=== PATIENT | male | born 1930 | race Caucasian/White ===

== ENCOUNTER 2016-06-09 18:38 | Inpatient (IN) | payer MEDICARE, OTHER ==
[~2016-06-09] VITALS: Ht 179.1 cm; Wt 80.6 kg
[~2016-06-09 18:38] MED LIST: ASPI-13 PO; WARF5TAB7 PO
[2016-06-09 18:45] VITALS: BP 125/67; PULSE 79; RESP 18; O2SAT 97
[2016-06-09] MEDS ORDERED: 0.9% Sodium Chloride 1,000 ML IV ONE ×2 (18:53→21:15)
[2016-06-09] MEDS ORDERED: Ondansetron 2 mg/mL 2 mL Inj IVPUSH PRN (18:55)
--- NOTE | 2016-06-09 19:02 | ED.REPORT ---
HPI-Abd Pain M 40 and Over Date of Service Jun 09, 2016 ED Provider: Ta Steward DO An 86 year old male with a history of atrial fibrillation, appendectomy, hiatal hernia and multiple other medical concerns presents to the ED due to abdominal pain. The pt ate sunflower seeds and ice cream last night and soon after experienced nausea, vomiting and diarrhea. He has experienced persistent right- sided abdominal pain today, though he denies hematochezia. The pt takes aspirin but has not been on Warfarin in some time. Nursing Notes Stated Complaint: ABDOMINAL PAIN Chief Complaint: Male Abdominal Pain Nursing Notes Reviewed: Yes Allergies: Coded Allergies: No Known Allergies (Verified , 12/03/08) Scheduled Aspirin/Calcium Carbonate/Mag (Aspirin Buffered) 325 Mg Tablet 325 MG PO BID to be started the day after last Lovenox injection Warfarin Sodium (Warfarin Sodium) 5 Mg Tablet 5 MG PO MTWSat/Sun Warfarin Sodium (Warfarin Sodium) 5 Mg Tablet 2.5 MG PO Thur/Fri General Time Seen by MD: 18:50 Chief Complaint Abdominal pain Hx Obtained From: Patient Arrived By: Walk-in Sudden in Onset?: Yes Onset Occurred: 1 day ago Symptom Duration: Since onset Recent Healthcare: No recent doctor visit, No recent hospitalization Similar Sx Previous: No Past Medical History Past Medical History atrial fibrillation cardiomyopathy cardioversion lower extremity edema hiatal hernia hammertoe Past Surgical History right hip and bilateral knee replacement Reports: Appendectomy, Tonsillectomy Smoking History Former Smoker (quit 40 years ago) Social History Other Social History: Good social support, Ambulatory Status Independent Review of Systems Constitutional: Denies: Fever Respiratory: Denies: Non-productive cough Cardiovascular: Denies: Chest pain GI: Reports: Abdominal pain, Diarrhea, Nausea, Vomiting, Denies: Hematochezia Musculoskeletal: Denies: Back pain Complete sys rev & neg: except as marked. Physical Exam Initial Vital Signs Vital Signs (First) Date Time Temp Pulse Resp B/P Pulse Ox O2 Delivery O2 Flow Rate FiO2 06/09/16 18:45 36.9 79 18 125/67 97 Room Air Initial VS: Reviewed General/Constitutional: Awake, Alert Respiratory / Chest: Atraumatic, Breath sounds NL, Breath sounds = bilat, No respiratory distress Cardiovascular: Heart rate NL, Regular rhythm, Heart sounds NL Abdomen: Atraumatic, Soft moderate RLQ tenderness Back: Atraumatic, Full range of motion Head / Eyes: Atraumatic, Normocephalic, PERRL, EOMI ENT: Atraumatic, Airway patent, Mucous membranes moist Skin: Atraumatic, Color NL, No rash, Warm, Dry Neurologic: Oriented X3, Speech NL, No sensory deficits right-sided facial droop from prior right-sided fascial nerve resection Neck: Atraumatic, Supple, Full range of motion Upper Extremity / MS: Atraumatic, Full range of motion Lower Extremity / Pelvis / MS: Atraumatic, Full range of motion trace lower extremity edema bilaterally Psychiatric: Affect NL, Mood NL Interpretation & Diagnostics Lab Results Interpretation Result Diagram: 06/09/16 1855 06/09/16 1855 Test 06/09/16 18:55 06/09/16 19:05 White Blood Count 14.8th/mm3 (3.8-10.1) Red Blood Count 4.66mil/mm3 (4.40-5.80) Hemoglobin 15.1g/dL (13.8-17.2) Hematocrit 42.6% (41.0-50.0) Mean Corpuscular Volume 91.4fL (81-100) Mean Corpuscular Hemoglobin 32.4pg (27.0-35.0) Mean Corpuscular Hemoglobin Concent 35.4% (32.0-37.0) Red Cell Distribution Width 11.9% (12.3-15.4) Platelet Count 159bil/L (150-400) Neutrophils (%) (Auto) 83.8% (40-74) Lymphocytes (%) (Auto) 7.9% (14-46) Monocytes (%) (Auto) 7.9% (4-12) Eosinophils (%) (Auto) 0% (0-5) Basophils (%) (Auto) 0.1% (0-3) Prothrombin Time 10.7sec (8.1-12.5) Prothromb Time International Ratio 1.00ratio Sodium Level 136mEq/L (134-144) Potassium Level 4.1mEq/L (3.5-5.2) Chloride Level 98mEq/L (97-108) Carbon Dioxide Level 20mmol/L (18-29) Blood Urea Nitrogen 10mg/dL (8-27) Creatinine 0.61mg/dL (0.76-1.27) Estimat Glomerular Filtration Rate 133mL/min (>59) Glucose Level 134mg/dL (60-99) Lactic Acid Level 2.1mmol/L (0.4-2.0) Calcium Level 9.2mg/dL (8.5-10.1) Magnesium Level 1.9mg/dL (1.6-2.6) Total Bilirubin 1.0mg/dL (0.0-1.2) Aspartate Amino Transf (AST/SGOT) 30U/L (0-50) Alanine Aminotransferase (ALT/SGPT) 20U/L (0-44) Alkaline Phosphatase 50U/L (25-160) Troponin T < 0.010ug/L (0.0-0.011) Total Protein 7.8g/dL (6.4-8.4) Albumin 4.4g/dL (3.4-5.0) Urine Color Yellow (YELLOW) Urine Appearance Hazy (CLEAR,HAZY) Urine pH 5.5 (5.0-8.0) Urine Specific [place] 1.025 (1.003-1.035) Urine Protein 30mg/dL (NEG,TRACE) Urine Glucose (UA) Negativemg/dL (NEGATIVE) Urine Ketones 15mg/dL (NEGATIVE) Urine Occult Blood Small (NEGATIVE) Urine Nitrite Negative (NEGATIVE) Urine Bilirubin Negative (NEGATIVE) Urine Urobilinogen Normalmg/dL (NORMAL) Urine Leukocyte Esterase Negative (NEGATIVE) Urine RBC 0-2/hpf (0-2) Urine WBC 0-5/hpf (0-5) Urine Epithelial Cells Few/hpf (NONE-MOD) Urine Crystals None seen (NONE SEEN) Urine Bacteria None/hpf (NONE-FEW) Urine Hyaline Casts None/lpf (NONE) Urine Granular Casts None seen (NONE SEEN) Urine Waxy Casts None seen (NONE SEEN) Urine Red Blood Cell Casts None seen (NONE SEEN) Urine White Blood Cell Casts None seen (NONE SEEN) Urine Mucus Present (None Seen) Urine Trichomonas None seen (NONE SEEN) Urine Yeast None (NONE SEEN) Urinalysis Comment None Urine Culture Reflexed Not indicated Pulse Oximetry Interpretation Pulse Oximetry Interpretation: 97% on room air Pulse Oximetry: Pulse Ox normal ECG Interpretation ECG Interpretation: normal sinus rhythm with a rate of 73 prolonged NC interval probable left atrial enlargement inferior infarct, old anterior infarct, old Time: 19:08 Interpreted by: ED physician CT Abd / Pelvis Interpretation IMPRESSION: 1. Ill-defined thickened gallbladder wall with suspected superimposed pericholecystic fluid. There are ill-defined areas of faint intraluminal hyperdensity, suggestive of stone. Findings are highly suspicious for cholelithiasis or with superimposed cholecystitis. However, secondary to areas of indistinct characterization, ultrasound is recommended for additional evaluation. 2. Diverticulosis. Dictated by: Lily Tate M.D. on 06/09/2016 at 20:27 Approved by: Lily Tate M.D. on 06/09/2016 at 20:31 Interpretation / Wet Read by: Interpret - Radiologist Re-Eval/Medical Decision Source of Hx: Old records Time of Eval: 21:03 Patient Status: Condition improved Re-Evaluation/Progress Note: Pt rechecked, who is resting. He is informed of his CT results and the plan for admission pending surgical consult are discussed. The pt understands and agrees with the plan. All questions are addressed at this time. Consultation #1: Referral / Consult Name: Sadiq Jarrett MD Consulted With: Surgeon Call Returned at: 21:12 Aids Social Worker: Will see patient, Agrees with eval, Agrees with plan Note: Spoke with Dr. Jarrett, surgeon, regarding pt's case. Dr. Jarrett agrees with the evaluation and agrees to see the pt in the ED. Consultation #2: Referral / Consult Name: Shantel Washburn DO Consulted With: Hospitalist Call Returned at: 22:00 Aids Social Worker: Agrees with eval, Agrees with plan, Accepts admit Note: Spoke with Dr. Washburn, hospitalist, regarding pt's case. Dr. Washburn agrees with the evaluation and agrees to admit the pt. Counseled Regarding: Diagnosis, Lab results, Need for admission Discharge & Departure Primary Impression: Cholecystitis Disposition: ADMITTED TO HOSPITAL Vital Signs - All Vital Signs Date Time Temp Pulse Resp B/P Pulse Ox O2 Delivery O2 Flow Rate FiO2 06/09/16 20:50 37.3 65 17 125/45 98 Room Air 06/09/16 18:45 36.9 79 18 125/67 97 Room Air )( All Prior VS Reviewed: Yes Condition: Stable Referrals: Isrrael Day MD (PCP) Scribe Attestation Portions of this note were transcribed by Shasta Kasper. I, Dr. Steward personally performed the history, physical exam and medical decision-making; I reviewed and confirmed the accuracy of the information in the transcribed note. Signed by: Suyapa Burt, 06/09/16 and 2241. copies to: Isrrael Day MD, Todd P DO Jun 09, 2016 19:02 SHASTA KASPER Jun 09, 2016 19:14 Ta Steward DO Jun 09, 2016 19:02 SHASTA KASPER Jun 09, 2016 19:14
[2016-06-09] MEDS ORDERED: fentaNYL-PF 50 mCg/mL 2 mL Inj IVPUSH PRN (19:05)
[2016-06-09 19:10] LABS: BASOPHILS % (AUTO) 0.1 % (0-3); EOSINOPHILS % (AUTO) 0 % (0-5); MONOCYTES % (AUTO) 7.9 % (4-12); Mean Corpuscular Hemoglobin 32.4 pg (27.0-35.0); Mean Corpuscular Volume 91.4 fL (81-100); NEUTROPHILS % (AUTO) 83.8 % (40-74); Platelet Count 159 bil/L (150-400)
[2016-06-09 19:38] LABS: APPEARANCE,URINE HAZY (CLEAR,HAZY); COLOR,URINE YELLOW (YELLOW); OCCULT BLOOD,URINE SMALL (NEGATIVE); PH,URINE 5.5 (5.0-8.0); UROBILINOGEN,URINE NORMAL (NORMAL)
[2016-06-09 19:40] LABS: TROPONIN T < 0.010 ug/L (0.0-0.011)
[2016-06-09 19:48] LABS: Lipase 22 U/L (13-60); Magnesium 1.9 mg/dL (1.6-2.6)
--- NOTE | 2016-06-09 20:33 | DRSVH ---
PROCEDURE: CT ABDOMEN AND PELVIS WITH CONTRAST ([id number]) INDICATIONS: right lower quadrant pain TECHNIQUE: After the administration of intravenous contrast, 5 mm thick sections acquired from the diaphragm to the symphysis. 5 mm coronal and sagittal reformats were acquired. For radiation dose reduction, the following was used: automated exposure control, adjustment of mA and/or kV according to patient siz e. COMPARISON: None. FINDINGS: Image quality: Excellent. ABDOMEN: Lung bases: Lung bases are clear. Heart size is normal. Solid organs: Liver and spleen are normal in size and enhancement. Gallbladder demonstrates ill-def ined, thickened wall as well as what appears to be presence of pericholecystic fluid. The lumen is il l-defined. However, there is suggestion of areas of relative fever and increased density... Biliary system is non dilated. Pancreas enhances normally. No adrenal nodules. Kidneys demonstrate normal size and enhancement, without hydronephrosis. Peritoneum and bowel: Bowel loops demonstrate normal wall thickness and caliber. No free fluid or a ir. Colonic diverticula are present. Nodes and vessels: No retroperitoneal or mesenteric adenopathy by size criteria. Aorta and inferior vena cava are normal in size. Miscellaneous: No ventral hernias. PELVIS: Genitourinary: Bladder wall thickness is normal. However, it is incompletely evaluated secondary to metallic streak artifact from bilateral hip arthroplasties. Miscellaneous: No inguinal hernias or adenopathy. Bones: No suspicious bony lesions. No vertebral body compression fractures. IMPRESSION: 1. Ill-defined thickened gallbladder wall with suspected superimposed pericholecystic fluid. There ar e ill-defined areas of faint intraluminal hyperdensity, suggestive of stone. Findings are highly susp icious for cholelithiasis or with superimposed cholecystitis. However, secondary to areas of indistin ct characterization, ultrasound is recommended for additional evaluation. 2. Diverticulosis. Dictated by: Lily Tate M.D. on 06/09/2016 at 20:27 Approved by: Lily Tate M.D. on 06/09/2016 at 20:31
[2016-06-09 20:50] VITALS: BP 125/45; PULSE 65; RESP 17; O2SAT 98
[2016-06-09] MEDS ORDERED: Piperacillin-Tazo 3.375 Gm Inj 3.375 GM in Dextrose 5% Minibag Plus 50 ML IV ONE (20:55)
[2016-06-09] MEDS ORDERED: Polyethylene Glycol (PEG) 17 Gm Powder PO PRN (22:40)
[2016-06-09] MEDS ORDERED: Alum-Mag Hydrox-Simeth 30 mL Suspension PO PRN (22:40)
[2016-06-09 23:08] VITALS: BP 123/62; PULSE 63; RESP 16; O2SAT 97
[2016-06-09 23:15] LABS: Phosphorus 3.6 mg/dL (2.5-4.9)
[2016-06-09] MEDS: Lactated Ringer's 1,000 ML IV SCH (23:45)
--- NOTE | 2016-06-09 23:49 | PCM.HPMED ---
Subjective Date of Service Jun 09, 2016 Primary Provider: Admitting Physician: Shantel Washburn DO [facility] Attending Physician: Shantel Washburn DO Admit Status: From the Emergency Department Chief Complaint: "stomach pain" History of Present Illness: Mr. Meléndez is an 86 y/o man with history of atrial fibrillation status post cardioversion, cardiomyopathy, and osteoarthritis who presented to the hospital today for right upper quadrant pain that started tonight after dinner. He had ice cream and peanuts after dinner then the pain started. He tried to go to sleep but was unable to sleep secondary to the pain. It did not radiate anywhere. It is now gone and only present when he pushes on his abdomen. He had one episode of non-bloody emesis earlier tonight before coming to the ED. He had 1 episode of loose stools followed by an episode of hard stools without any blood in them. He does not have fever, chills, jaundice, any further nausea or vomiting. In the emergency department, he was given a dose of ondansetron and Zosyn and given a bolus of fluids. CT abdomen and pelvis with contrast showed a thickened gallbladder wall and pericholecystic fluid. General surgery was consulted and agreed to proceed with cholecystectomy tomorrow morning and to continue Zosyn and fluids. Review of Systems: A comprehensive review of systems was conducted with the patient and found to be negative except as above in the History of Present Illness. 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 at Surgical History Bilateral hip and knee replacement Appendectomy Tonsillectomy Family History Father had a stroke Mother had memory loss Social History Occupation: Retired Hx Alcohol Use: Yes (last ETOH drink 30 years ago) Alcoholic Drinks Per Day: 30 years ago Hx Substance Use: No Smoking Status: Former Smoker (quit 40 years ago) Living Arrangement: with Family Exam Vital Signs Vital Sign - Last Date Time Temp Pulse Resp B/P Pulse Ox O2 Delivery O2 Flow Rate FiO2 06/09/16 23:08 37.0 63 16 123/62 97 Room Air Exam General: No acute distress, well-developed, well-nourished, appropriately interactive HEENT: Normocephalic, atraumatic. External ears without defect. Pupils equal, round, and reactive to light and accommodation. Anicteric sclerae, moist conjunctivae, and no lid lag. Oropharynx free of erythema and cobble stoning with moist mucosa. Neck: Supple with full range of motion. No jugular venous distension. No lymphadenopathy or thyromegaly. Cardiovascular: Systolic ejection murmur grade III/ at right upper sternal border than radiates to the neck. Regular rate and rhythm with no rubs or gallops appreciated Pulmonary: Clear to auscultation bilaterally with no crackles, wheezes, or rhonchi. Normal respiratory effort with no use of accessory muscles. Abdomen: Bowel tones present. Soft, nontender, nondistended. No hepatosplenomegaly or masses appreciated. Extremities: Bilateral hammertoes. No cyanosis, edema, or lymphadenopathy appreciated. Skin: Normal temperature, turgor, and texture; no rash, ulcers, or subcutaneous nodules appreciated. Neurological: Right sided facial droop (chronic) but otherwise cranial nerves grossly intact. Normal muscle strength, tone, and bulk. Coordination and sensory function within normal limits. No known gait impairment. Psychiatric: Normal mood and affect. Alert and oriented to person, place, and time. Lab and Diagnostics Result Diagram: 06/09/[id number] X-Rays, CTs and MRIs PROCEDURE: CT ABDOMEN AND PELVIS WITH CONTRAST IMPRESSION: 1. Ill-defined thickened gallbladder wall with suspected superimposed pericholecystic fluid. There are ill-defined areas of faint intraluminal hyperdensity, suggestive of stone. Findings are highly suspicious for cholelithiasis or with superimposed cholecystitis. However, secondary to areas of indistinct characterization, ultrasound is recommended for additional evaluation. 2. Diverticulosis. Approved by: Lily Tate M.D. 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 Normal LV size; mild concentric LVH. mild global hypokinesis. EF is 40-45% Moderately dilated RV with moderately reduced RV function. 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 Moderate central MR; estimated PA systolic pressure is 36 mm hg assuming RA pressure of 3 mm Hg. Compared to prior echo 08/10, on personal review no sginificant changes have occurred. Reading Physician:05: 10 PM Assessment & Plan Mr. Meléndez is an 86 y/o man with history of atrial fibrillation status post cardioversion, cardiomyopathy, and osteoarthritis who presented to the hospital today for right upper quadrant pain that started tonight after dinner. 1. Acute cholecystitis, present on admission. - Pt has intermittent right upper quadrant pain with an elevated WBC of 14.[address] abdomen, as above, consistent with cholecystitis. Lactic acid mildly elevated at 2.1. - Currently, pt does not meet sepsis criteria because his temperature, heart rate, and respiratory rate are within normal limits. - Zofran as needed for nausea/vomiting - Continue Zosyn IV antibiotics and IV fluids - Continue to monitor vital signs - General surgery consulted and plans to do cholecystectomy tomorrow morning - [employer] risk calculator places patient at an average risk for the procedure for his age 2. Atrial fibrillation, chronic, stable. Rate and rhythm controlled. Status post cardioversion. - Pt no longer requires anticoagulation as he is rhythm controlled. - Continue to monitor with telemetry 3. Cardiomyopathy, chronic, stable. - Most recent echocardiogram in 09/2014 showed EF 40-45% - Pt appears euvolemic on exam today - Continue to monitor I&Os Pain Evaluation: Adequate Pain Control VTE Prophylaxis: SCDs VTE Mechanical Devices: Intermittant Pneumatic CD Resuscitation Status: CPR: Attempt Resuscitation Attending Statement The patient was seen and examined together with house staff on 06/09/2016 and I agree with the history, exam and plan as outlined in the note above. Amairani Young DO Jun 09, 2016 23:49 Shantel Washburn DO Jun 10, 2016 04:46
[2016-06-10] VITALS (13 sets, daily range): BP systolic 117–135; BP diastolic 48–68; PULSE 61–80; RESP 16–18; O2SAT 95–100
[2016-06-10] MEDS ORDERED: Ondansetron 2 mg/mL 2 mL Inj IVPUSH PRN ×3 (00:20→16:35)
[2016-06-10] MEDS: Sodium Chloride LOK Flush 10 mL Syringe IVFLUSH SCH ×4 (00:30→23:34)
[2016-06-10 06:20] LABS: BASOPHILS % (AUTO) 0.2 % (0-3); EOSINOPHILS % (AUTO) 0 % (0-5); Mean Corpuscular Hemoglobin 32.5 pg (27.0-35.0); Mean Corpuscular Volume 90.3 fL (81-100); NEUTROPHILS % (AUTO) 79.8 % (40-74); Platelet Count 131 bil/L (150-400)
--- NOTE | 2016-06-10 06:20 | NUR ---
Admit Patient arrived 2240 from ED. Patient A&Ox3. Up independent to bathroom. Steady gate. vitals stable. Rt side abdominal pain. Rm air. Report given by Felicia BRANDT.
[2016-06-10] MEDS ORDERED: Succinylcholine Chloride 20 mg/mL 5 mL Inj ONE (07:28)
[2016-06-10] MEDS ORDERED: Glycopyrrolate 0.2 MG/ML 1mL Inj ONE (07:28)
[2016-06-10] MEDS ORDERED: Phenylephrine/NS 100 mCg/mL 10 mL Syringe IVPUSH ONE (07:28)
[2016-06-10] MEDS ORDERED: Propofol 10,000 mCg/mL 20 mL Inj ONE (07:28)
[2016-06-10] MEDS ORDERED: Ondansetron 2 mg/mL 2 mL Inj ONE (07:28)
[2016-06-10] MEDS ORDERED: Neostigmine 1 mg/mL 10 mL Inj ONE (07:28)
[2016-06-10] MEDS ORDERED: fentaNYL-PF 50 mCg/mL 2 mL Inj ONE (07:28)
[2016-06-10] MEDS ORDERED: ASPI-973 PO (07:36)
[2016-06-10] MEDS ORDERED: MULT-1018 PO (07:39)
[2016-06-10] MEDS ORDERED: 0.9% Sodium Chloride 100 ML ONE (08:51)
[2016-06-10] MEDS: Piperacillin-Tazo 3.375 Gm Inj 3.375 GM in Dextrose 5% Minibag Plus 50 ML IV SCH ×2 (08:56→19:51)
[2016-06-10] MEDS: Lactated Ringer's 1,000 ML IV SCH ×2 (10:10→22:40)
--- NOTE | 2016-06-10 10:35 | NUR ---
Social Work- Initial Assessment Data: See Initial Assessment. Pt is a 86 year old male admitted 06/09/16 for acute colecystitis lithiasis per H&P. Pt to receive surgery today. Pt's insurance is [employer]. Pt's PCP is the [facility], [place]. MILLICENT met with pt at bedside regarding discharge plan, MILLICENT role explained. Pt alert and oriented x3. Pt resides at home in with his where he remains independent with ADLs. Pt uses no DME and drives. Pt has no LTC benefits, has VA benefits. Pt has no HH history. Pt has been to [facility] for rehab. Pt is currently receiving outpt PT through the [facility]. SW requested pt to bring in DPOA paperwork. SW left phone number and plan on whiteboard in room. Pt anticipated to discharge home with to transport via POV. No anticipated discharge needs. SW will continue to follow. Assessment: Pt who is independent at base. Plan:Pt anticipated to discharge home with to transport via POV. No anticipated discharge needs. MILLICENT will continue to follow. Marleny Pollock [employer] Addendum: 06/10/16 at 1042 by ELLIE POLLOCK Amended: Links added.
--- NOTE | 2016-06-10 12:13 | PCM.PNMED ---
Subjective Date of Service Jun 10, 2016 Subjective Patient seen and examined. very hard of hearing. Reports pain still present but 6/10 intensity and exacerbated with palpation. No fever or chills reported Pertinent positives as noted in HPI. All other systems were reviewed and are negative Exam Vital Signs Vital Sign - Last Date Time Temp Pulse Resp B/P Pulse Ox O2 Delivery O2 Flow Rate FiO2 06/10/16 07:14 37.1 69 18 131/65 99 Room Air Intake and Output 06/09/16 06/09/16 06/10/16 Cumulative From/Thru 15:00 23:00 07:00 06/09/16 18:45 - 06/10/16 06:29 Intake Total 1000 ml 1000 ml Balance 1000 ml 1000 ml IV Total 1000 ml 1000 ml Exam General: Alert, Oriented X3, Cooperative, No acute Distress Eyes: PERRLA, Scleral Anicteric Mouth: Mouth Normal, Mucous Membranes Moist/[place] Neck: Supple, no Thyromegaly, trachea central. Chest & Lungs: Clear to auscultation & percussion, No adventitious breath sounds, no crackles, no wheeze Cardiovascular: Normal S1, Normal S2, No Rubs/Gallops, Regular Rate/Rhythm, Systolic ejection murmur grade III/ at right upper sternal border than radiates to the neck (No JVD, no peripheral edema) Pulses: Radial (present and equal), Dorsalis Pedi (present and equal) Abdomen: Soft, right upper abdominal tenderness + Ham sign, Non-distended, Normoactive bowel tones. Musculoskeletal: Unremarkable. Normal range of motion, no swollen or erythematous joints Extremities: No edema, no cyanosis, no clubbing. Skin: No rashes. Warm and dry, no erythematous areas Neurological: Grossly neurologically intact except chronic right facial droop, has generalized weakness, Normal Speech, Sensation Intact Lymphatic: Lymph nodes Cervical and Axillary not palpable. IVs and Medications Medications Reviewed: Medications were reviewed in detail Lab and Diagnostics Laboratory Tests Test 06/09/16 18:55 06/09/16 19:05 06/10/16 00:28 06/10/16 02:15 White Blood Count 14.8th/mm3 (3.8-10.1) Red Blood Count 4.66mil/mm3 (4.40-5.80) Hemoglobin 15.1g/dL (13.8-17.2) Hematocrit 42.6% (41.0-50.0) Mean Corpuscular Volume 91.4fL (81-100) Mean Corpuscular Hemoglobin 32.4pg (27.0-35.0) Mean Corpuscular Hemoglobin Concent 35.4% (32.0-37.0) Red Cell Distribution Width 11.9% (12.3-15.4) Platelet Count 159bil/L (150-400) Neutrophils (%) (Auto) 83.8% (40-74) Lymphocytes (%) (Auto) 7.9% (14-46) Monocytes (%) (Auto) 7.9% (4-12) Eosinophils (%) (Auto) 0% (0-5) Basophils (%) (Auto) 0.1% (0-3) Prothrombin Time 10.7sec (8.1-12.5) Prothromb Time International Ratio 1.00ratio Sodium Level 136mEq/L (134-144) Potassium Level 4.1mEq/L (3.5-5.2) Chloride Level 98mEq/L (97-108) Carbon Dioxide Level 20mmol/L (18-29) Blood Urea Nitrogen 10mg/dL (8-27) Creatinine 0.61mg/dL (0.76-1.27) Estimat Glomerular Filtration Rate 133mL/min (>59) Glucose Level 134mg/dL (60-99) Lactic Acid Level 2.1mmol/L (0.4-2.0) 1.1mmol/L (0.4-2.0) 0.8mmol/L (0.4-2.0) Calcium Level 9.2mg/dL (8.5-10.1) Phosphorus Level 3.6mg/dL (2.5-4.9) Magnesium Level 1.9mg/dL (1.6-2.6) Total Bilirubin 1.0mg/dL (0.0-1.2) Aspartate Amino Transf (AST/SGOT) 30U/L (0-50) Alanine Aminotransferase (ALT/SGPT) 20U/L (0-44) Alkaline Phosphatase 50U/L (25-160) Troponin T < 0.010ug/L (0.0-0.011) Total Protein 7.8g/dL (6.4-8.4) Albumin 4.4g/dL (3.4-5.0) Lipase 21U/L (13-60) Procalcitonin 0.14ng/mL (0.00-0.08) Urine Color Yellow (YELLOW) Urine Appearance Hazy (CLEAR,HAZY) Urine pH 5.5 (5.0-8.0) Urine Specific [place] 1.025 (1.003-1.035) Urine Protein 30mg/dL (NEG,TRACE) Urine Glucose (UA) Negativemg/dL (NEGATIVE) Urine Ketones 15mg/dL (NEGATIVE) Urine Occult Blood Small (NEGATIVE) Urine Nitrite Negative (NEGATIVE) Urine Bilirubin Negative (NEGATIVE) Urine Urobilinogen Normalmg/dL (NORMAL) Urine Leukocyte Esterase Negative (NEGATIVE) Urine RBC 0-2/hpf (0-2) Urine WBC 0-5/hpf (0-5) Urine Epithelial Cells Few/hpf (NONE-MOD) Urine Crystals None seen (NONE SEEN) Urine Bacteria None/hpf (NONE-FEW) Urine Hyaline Casts None/lpf (NONE) Urine Granular Casts None seen (NONE SEEN) Urine Waxy Casts None seen (NONE SEEN) Urine Red Blood Cell Casts None seen (NONE SEEN) Urine White Blood Cell Casts None seen (NONE SEEN) Urine Mucus Present (None Seen) Urine Trichomonas None seen (NONE SEEN) Urine Yeast None (NONE SEEN) Urinalysis Comment None Urine Culture Reflexed Not indicated Test 06/10/16 05:48 06/10/16 06:00 Hold Urine Received (Received) White Blood Count 12.6th/mm3 (3.8-10.1) Red Blood Count 4.21mil/mm3 (4.40-5.80) Hemoglobin 13.7g/dL (13.8-17.2) Hematocrit 38.0% (41.0-50.0) Mean Corpuscular Volume 90.3fL (81-100) Mean Corpuscular Hemoglobin 32.5pg (27.0-35.0) Mean Corpuscular Hemoglobin Concent 36.1% (32.0-37.0) Red Cell Distribution Width 12.1% (12.3-15.4) Platelet Count 131bil/L (150-400) Neutrophils (%) (Auto) 79.8% (40-74) Lymphocytes (%) (Auto) 9.6% (14-46) Monocytes (%) (Auto) 10.0% (4-12) Eosinophils (%) (Auto) 0% (0-5) Basophils (%) (Auto) 0.2% (0-3) Sodium Level 136mEq/L (134-144) Potassium Level 4.2mEq/L (3.5-5.2) Chloride Level 102mEq/L (97-108) Carbon Dioxide Level 23mmol/L (18-29) Blood Urea Nitrogen 10mg/dL (8-27) Creatinine 0.61mg/dL (0.76-1.27) Estimat Glomerular Filtration Rate 133mL/min (>59) Glucose Level 118mg/dL (60-99) Calcium Level 8.7mg/dL (8.5-10.1) Total Bilirubin 0.9mg/dL (0.0-1.2) Aspartate Amino Transf (AST/SGOT) 25U/L (0-50) Alanine Aminotransferase (ALT/SGPT) 18U/L (0-44) Alkaline Phosphatase 42U/L (25-160) Total Protein 6.1g/dL (6.4-8.4) Albumin 3.7g/dL (3.4-5.0) Microbiology 06/09/16 Blood Culture, Received Pending Result Diagram: 06/10/16 0600 06/10/16 0600 X-Rays, CTs and MRIs PROCEDURE: CT ABDOMEN AND PELVIS WITH CONTRAST IMPRESSION: 1. Ill-defined thickened gallbladder wall with suspected superimposed pericholecystic fluid. There are ill-defined areas of faint intraluminal hyperdensity, suggestive of stone. Findings are highly suspicious for cholelithiasis or with superimposed cholecystitis. However, secondary to areas of indistinct characterization, ultrasound is recommended for additional evaluation. 2. Diverticulosis. Approved by: Lily Tate M.D. 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 Normal LV size; mild concentric LVH. mild global hypokinesis. EF is 40-45% Moderately dilated RV with moderately reduced RV function. 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 Moderate central MR; estimated PA systolic pressure is 36 mm hg assuming RA pressure of 3 mm Hg. Compared to prior echo 08/10, on personal review no sginificant changes have occurred. Reading Physician:05: 10 PM Assessment & Plan Mr. Meléndez is an 86 y/o man with history of atrial fibrillation status post cardioversion, cardiomyopathy, and osteoarthritis who presented to the hospital for right upper quadrant pain Hospital Day 2 1. Acute cholecystitis, present on admission. Under therapy and ongoing - No Sepsis noted but associated leukocytosis improving - Continue Zosyn IV antibiotics and IV fluids - Continue to monitor vital signs - General surgery consulted and plans to do cholecystectomy, timing unclear - [employer] risk calculator places patient at an average risk for the procedure for his age 2. Lactic acidosis. Present on admission. Resolved Due to tissue hypoxia - continue IV fluids and antibiotics 3 Atrial fibrillation, chronic, stable. Rate and rhythm controlled. Status post cardioversion. - Pt no longer requires anticoagulation - Continue to monitor with telemetry 4 Cardiomyopathy, chronic, stable. - Most recent echocardiogram in 09/2014 showed EF 40-45% - Pt appears euvolemic with no acute heart failure - Continue to monitor I&Os - monitor electrolytes, some non sustained V tach reported by nurses - Acetaminophen as needed for mild pain/fever/headache - Bowel regimen as needed - Antiemetic as needed Patient admitted under inpatient status with expected length of stay > 2 midnights for severity of present symptoms, complexities of treatment plan and risk for adverse event . VTE Prophylaxis: SCDs VTE Mechanical Devices: Intermittant Pneumatic CD Resuscitation Status: CPR: Attempt Resuscitation Orestes Parker MD Jun 10, 2016 07:20
--- NOTE | 2016-06-10 14:22 | NUR ---
Pt off Unit Pt off unit to OR.
--- NOTE | 2016-06-10 14:37 | PCM.HPANE ---
Patient Data Surgeon Admitting Provider:Shantel Washburn DO Attending Provider:Shantel Washburn DO [facility] Other [facility]: Reason for Visit Acute Colecystitis Lithiasis Ht/WT & BMI Height (Feet): 5 Height (Inches): 10.50 Weight (Kilograms): 78.100 Body Mass Index 24.38 Allergies Coded Allergies: No Known Allergies (Verified , 06/10/16) Past Anesthesia History Anesthesia History: Denies:: Anesthesia Reactions, Fam Anesthesia Reaction, Fam Malignant Hypertherm, Malignant Hyperthermia Diabetes History Hx Diabetes?: No Current Bedside Blood Glucose: 87 MRSA MRSA: No Medications Blood Thinner: Aspirin Reported Medications Multivitamin (Multi Vitamin Daily)1 Each Tablet1 Tablet PO DAILY 06/10/16 Discontinued Reported Medications Aspirin 81 Mg [id number] Mg PO DAILY 06/10/16 Warfarin Sodium 5 Mg Tablet2.5 Mg PO Thur/Sat 30 Days Ref 0 08/09/14 Warfarin Sodium 5 Mg Tablet5 Mg PO MTWSat/Sun 30 Days Ref 0 08/09/14 Discontinued Scripts Aspirin/Calcium Carbonate/Mag (Aspirin Buffered)325 Mg [id number] Mg PO BID 32 Days to be started the day after last Lovenox injection Prov:Kerrie Edward PA-C 01/22/14 History History of ENT Problems?: No HEENT History: Positive for:: Hearing Problem Denies:: Cataracts Dysphagia Glaucoma Sinus Problem Denture Type: Full- Upper Teeth Condition: Within Normal Limits Hx of Heart Problems?: Yes Cardiovascular History: Positive for:: Atrial Fibrillation Irregular Heartbeat (Afib) Denies:: Cardiac Surgery Chest Pain Congestive Heart Failure Edema Heart Murmur Hypertension Pacemaker Thrombophlebitis Other History/Comments History of Afib status post ablation one year ago. Has been stable Hx of Respiratory Problem?: Yes Respiratory History: Denies:: Asthma COPD Chest Surgery Dyspnea Emphysema Hemoptysis Oxygen Administration Pneumonia Tuberculosis Use of C-PAP Machine (LEMUEL +, PT DOESNT USE CPAP) Hx Neurologic Problems?: No Neurological History: Denies:: Alzheimer's Disease CVA Dementia Dizziness Headaches Multiple Sclerosis Parkinson's Disease Seizures Hx of GI Problems?: No Other History/Comment Gallstones Hx of Problems?: No Genitourinary History: Denies:: HX of Hemodialysis Kidney Stones Urinary Tract Infection HX of Peritoneal Dialysis: No Male Hx: Denies:: Prostate Problems Scrotal Mass Testicular Surgery Skin History: Positive for:: History Skin Disorders? 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 Blood Transfusions Denies:: Blood Transfuse Reaction Hx Diabetes: NoBedside Blood Glucose: 87 Occupation: Retired Hx Alcohol Use: Yes (last ETOH drink 30 years ago)Alcoholic Drinks Per Day: 30 years agoHx Substance Use: No Smoking Status: Former Smoker (quit 40 years ago) Have You Smoked inLast 12 mo: No Stop/Bang Treated for Sleep Apnea?: No Do You Have a CPAP Machine?: No S-Snoring: Do You Snore Loudly: Yes T-Tired: feel tired, fatigued: No O-Obsered: Observed not breath: No P-Blood Pressure: treated: No B- Body Mass Index > 35 kg/m2: No A- Age over 50: Yes N- Neck Large Circumference: No G- Gender Male: Yes LEMUEL Total Score: 2 Risk Assessment Category Category 1A: Patient has history of documented sleep apnea, and HAS NOT received any narcotic, sedative or anesthesia administration during this stay. Category 1B: Patient has history of documented sleep apnea, and HAS received any narcotic , sedative or anesthesia administration during this stay Category 2: Patient has SUSPECTED Obstructive Sleep Apnea, and HAS received any narcotic , sedative or anesthesia administration during this stay. Category 3: Patient has SUSPECTED Obstructive Sleep Apnea and HAS NOT received narcotic, sedative or anesthesia administration during this stay. Category 4: Outpatient in Procedural Areas with known sleep apnea or who screen positive for High Risk via the STOP/BANG questionnaire. Exam Exam Vital Signs Vital Signs Date Time Temp Pulse Resp B/P Pulse Ox O2 Delivery O2 Flow Rate FiO2 06/10/16 11:41 36.6 65 18 124/68 97 Room Air 06/10/16 08:51 61 06/10/16 07:14 37.1 69 18 131/65 99 Room Air General Appearance: Alert, Oriented X3, Cooperative HEENT/AIRWAY: MP 2 Lungs: Clear to Auscultation, Normal Air Movement Heart: Exam Unremarkable, Normal S1, Normal S2 Meds/Labs/Diagnostics Admission Meds Current Medications Sodium Chloride 1,000 ml @ 0 mls/hr Q0M ONCE IV Last administered on 19:08; Start 06/09/16 at 18:53; Stop 06/09/16 at 18:56; Status DC Piperacillin Sod/ Tazobactam Sod 3.375 gm/Dextrose/ Water 50 ml @ 100 mls/hr ONCE ONCE IV Last administered on 06/09/16 21:46; Start 06/09/16 at 20:55; Stop 06/09/16 at 21:24; Status DC Lactated Ringer's 1,000 ml @ 80 mls/hr [id number] IV Last administered on 23:45; Start 06/09/16 at 21:40 Piperacillin Sod/ Tazobactam Sod 3.375 gm/Dextrose/ Water 50 ml @ 12.5 mls/hr Q12 IV Last administered on 06/10/16 08:56; Start 06/10/16 at 08:30 Sodium Chloride (Normal Saline) 100 ml @ ud STK-MED ONCE .ROUTE Last administered on 06/10/16 08:57; Start 06/10/16 at 08:51; Stop 06/10/16 at 08:53 ; Status DC Bedside Blood Glucose: 87 Labs Test 06/09/16 18:55 06/09/16 19:05 06/10/16 02:15 06/10/16 05:48 Prothrombin Time 10.7sec (8.1-12.5) Prothromb Time International Ratio 1.00ratio Phosphorus Level 3.6mg/dL (2.5-4.9) Magnesium Level 1.9mg/dL (1.6-2.6) Troponin T < 0.010ug/L (0.0-0.011) Lipase 21U/L (13-60) Procalcitonin 0.14ng/mL (0.00-0.08) Urine Color Yellow (YELLOW) Urine Appearance Hazy (CLEAR,HAZY) Urine pH 5.5 (5.0-8.0) Urine Specific [place] 1.025 (1.003-1.035) Urine Protein 30mg/dL (NEG,TRACE) Urine Glucose (UA) Negativemg/dL (NEGATIVE) Urine Ketones 15mg/dL (NEGATIVE) Urine Occult Blood Small (NEGATIVE) Urine Nitrite Negative (NEGATIVE) Urine Bilirubin Negative (NEGATIVE) Urine Urobilinogen Normalmg/dL (NORMAL) Urine Leukocyte Esterase Negative (NEGATIVE) Urine RBC 0-2/hpf (0-2) Urine WBC 0-5/hpf (0-5) Urine Epithelial Cells Few/hpf (NONE-MOD) Urine Crystals None seen (NONE SEEN) Urine Bacteria None/hpf (NONE-FEW) Urine Hyaline Casts None/lpf (NONE) Urine Granular Casts None seen (NONE SEEN) Urine Waxy Casts None seen (NONE SEEN) Urine Red Blood Cell Casts None seen (NONE SEEN) Urine White Blood Cell Casts None seen (NONE SEEN) Urine Mucus Present (None Seen) Urine Trichomonas None seen (NONE SEEN) Urine Yeast None (NONE SEEN) Urinalysis Comment None Urine Culture Reflexed Not indicated Lactic Acid Level 0.8mmol/L (0.4-2.0) Hold Urine Received (Received) Test 06/10/16 06:00 White Blood Count 12.6th/mm3 (3.8-10.1) Red Blood Count 4.21mil/mm3 (4.40-5.80) Hemoglobin 13.7g/dL (13.8-17.2) Hematocrit 38.0% (41.0-50.0) Mean Corpuscular Volume 90.3fL (81-100) Mean Corpuscular Hemoglobin 32.5pg (27.0-35.0) Mean Corpuscular Hemoglobin Concent 36.1% (32.0-37.0) Red Cell Distribution Width 12.1% (12.3-15.4) Platelet Count 131bil/L (150-400) Neutrophils (%) (Auto) 79.8% (40-74) Lymphocytes (%) (Auto) 9.6% (14-46) Monocytes (%) (Auto) 10.0% (4-12) Eosinophils (%) (Auto) 0% (0-5) Basophils (%) (Auto) 0.2% (0-3) Sodium Level 136mEq/L (134-144) Potassium Level 4.2mEq/L (3.5-5.2) Chloride Level 102mEq/L (97-108) Carbon Dioxide Level 23mmol/L (18-29) Blood Urea Nitrogen 10mg/dL (8-27) Creatinine 0.61mg/dL (0.76-1.27) Estimat Glomerular Filtration Rate 133mL/min (>59) Glucose Level 118mg/dL (60-99) Calcium Level 8.7mg/dL (8.5-10.1) Total Bilirubin 0.9mg/dL (0.0-1.2) Aspartate Amino Transf (AST/SGOT) 25U/L (0-50) Alanine Aminotransferase (ALT/SGPT) 18U/L (0-44) Alkaline Phosphatase 42U/L (25-160) Total Protein 6.1g/dL (6.4-8.4) Albumin 3.7g/dL (3.4-5.0) Plan Impression Patient chart reviewed, patient interviewed and anesthestic plan with risks, benefits, and alternatives discussed, and informed consent obtained. ASA Physical Status: ASA3 Severe Disease Anesthetic Plan: GA Bene/Risks/Altern/Consents: Yes HP Complete Prior to Induction: Yes Sadiq Ma MD Jun 10, 2016 14:37
[2016-06-10] MEDS ORDERED: Lactated Ringer's 1,000 ML IV ONE ×2 (14:47→16:00)
[2016-06-10] MEDS ORDERED: Bupivacaine-MPF 0.25%/EPI 30 mL Inj INJ ONE (15:15)
[2016-06-10] MEDS ORDERED: Acetaminophen IV 1,000 MG in IV Premix 1 EACH IV PRN (16:20)
[2016-06-10] MEDS ORDERED: diphenhydrAMINE 25 mg Capsule PO PRN (16:20)
--- NOTE | 2016-06-10 16:22 | DRSVH ---
PROCEDURE: X-RAY OPERATIVE CHOLANGIOGRAM ([id number]) INDICATIONS: STONES COMPARISON: None. FINDINGS: Intraoperative fluoroscopic images demonstrate injection of contrast. Contrast is disseminated with a soft tissue structure. No definitive large opacification is identified. IMPRESSION: Injected contrast within a soft tissue structure, possibly gallbladder or peritoneal cavi ty. Recommend correlation to real-time operative report for localization. Dictated by: Lily Tate M.D. on 06/10/2016 at 16:18 Approved by: Lily Tate M.D. on 06/10/2016 at 16:20
[2016-06-10] MEDS ORDERED: fentaNYL-PF 50 mCg/mL 2 mL Inj IVPUSH PRN (16:35)
[2016-06-10] MEDS ORDERED: MetoCLOpramide 5 mg/mL 2 mL Inj IVPUSH PRN (16:35)
[2016-06-10] MEDS ORDERED: EPHEDrine Sulfate 50 mg/mL Inj IVPUSH PRN (16:35)
[2016-06-10] MEDS ORDERED: HYDROmorphone 1 mg/mL Inj IVPUSH PRN (16:35)
[2016-06-10] MEDS ORDERED: Lactated Ringer's 500 ML IV PRN (16:35)
[2016-06-10] MEDS ORDERED: Dexamethasone 4 mg/mL Inj IVPUSH PRN (16:35)
[2016-06-10] MEDS ORDERED: Phenylephrine 10,000 mCg/mL Inj IVPUSH PRN (16:35)
[2016-06-10] MEDS ORDERED: Lactated Ringer's 1,000 ML IV SCH (16:35)
--- NOTE | 2016-06-10 16:36 | PCM.ANEP1 ---
Post Anesthesia Phase 1 PACU Phase 1 Assessment Vital Signs Vital Signs Date Time Temp Pulse Resp B/P Pulse Ox O2 Delivery O2 Flow Rate FiO2 06/10/16 11:41 36.6 65 18 124/68 97 Room Air 06/10/16 08:51 61 Anesthetic Administered: GA Level of Alertness: Awake, talking ANDREWS's with Equal Strength: Yes Pain: No Nausea or Vomiting: No Cardiovascular Function and Hy: Yes Oxygen Delivery: Simple Mask Lungs: Clear to Auscultation, Normal Air Movement Dermatome Level: Full Sensation Complications: No Sadiq Ma MD Jun 10, 2016 16:36
--- NOTE | 2016-06-10 17:00 | NUR ---
Post Op Pt arrived back to [facility] room 1028 at 1700. Pt A&Ox3. ANDREWS and able to transfer from stretcher to bed with minimal assistance. Medial lap site has serous drainage and two lower lap sites are C/D/I. DUSTY drain has serous sanguineous output. VSS. O2 d/c'd. IV SL. Pt denies any pain. Family at bedside and belongings brought from OR. Care continues.
--- NOTE | 2016-06-10 17:17 | OP ---
[address] [address] OPERATIVE REPORT PATIENT: NICHOLE GRIMALDO : 1930 MR#: [id number] ADMIT: 06/09/2016 JOB ID: [id number] DATE OF SURGERY: 06/10/2016 PREOPERATIVE DIAGNOSIS(ES): Acute cholecystitis. POSTOPERATIVE DIAGNOSIS(ES): Acute cholecystitis. PROCEDURE: Laparoscopic cholecystectomy with cholangiogram. SURGEON: Dr. Sadiq Jarrett. CHAR CONVEYOR TENDER CELLAR: Chance Pink PA-C, Aly Storey, MS3. A visitor service assistant was required and medically necessary for safe completion of the case including camera operation and skin retraction. INDICATIONS: An 86-year-old man with signs and symptoms consistent with acute cholecystitis. FINDINGS: The patient had fairly severe acute cholecystitis with marked gallbladder wall edema and thickened gallbladder wall, encased in inflammatory tissue. ESTIMATED BLOOD LOSS: 50 cc. DESCRIPTION OF PROCEDURE: The patient was brought to the operating room. SCOAP protocol was followed. He received perioperative Ancef in addition to his therapeutic Zosyn. Surgical time-out was performed. The abdomen was entered with a Veress needle and after establishing a CO2 pneumoperitoneum, we placed optical trocars x4. The gallbladder was very firm and we had to peel the colon and greater omentum off the gallbladder. We decompressed the gallbladder with a needle. Gallbladder was retracted cephalad. There was marked gallbladder wall edema particularly in the mesentery of the gallbladder. We began what I thought would be gallbladder/cystic duct junction. Indeed, we continued our dissection, bringing out the critical view of safety through tedious dissection staying on the gallbladder, I reached the point where I dissected down onto where I thought the cystic duct would be and I entered a large ductal structure that appeared either to be the neck of the gallbladder just before I entered the cystic duct or the large cystic duct. This was clearly a tubular structure entering the gallbladder and we were able to milk out a couple of stones and some bile and pass a catheter into what I thought was the distal lumen. We obtained a cholangiogram which demonstrated that we were just at the cystic gallbladder/cystic duct junction, but the catheter was curled up in the gallbladder and we opacified the gallbladder. We now removed the cholangiocatheter and dissected a bit further down off the gallbladder and really could not identify an open cystic duct. We went across a few things with clips and cautery and eventually went through all the tissue and I presumed that the patient had an obliterated cystic duct that was quite small and scarred. We stayed on the gallbladder and dissected the gallbladder out of the liver bed. We spilled one stone and we retrieved that. We then removed the gallbladder through the left upper quadrant incision which we had to expand because the gallbladder which was packed with stones. I wanted to get the gallbladder out intact so that I could examine it and indeed examined the gallbladder on the back table. I confirmed that where we had entered the gallbladder was right at the gallbladder/cystic duct junction and the cystic duct lumen appeared to be obliterated. We now closed the left upper quadrant fascia in layers with running 0-Vicryl followed by subcutaneous irrigation, and we then re-expanded our pneumoperitoneum, suctioned out all of our irrigation and blood. There was no sign of ongoing bleeding. There was no sign of bile leak, however, as we had not definitively identified the cystic duct and divided it with a clip, I felt that we should leave a drain in and we placed a 19-Uzbek drain in the gallbladder fossa. This was brought out through one of our port sites and we secured this with nylon. We now checked our dissection one more time, let our CO2 out, closed the wounds with absorbable suture and at the time of this dictation, the patient is in the recovery room. Plan will be to continue his antibiotics for only 24 more hours, likely remove his Chandrakant-Whitney drain prior to leaving the hospital if there is no sign of bile leak and his LFTs remain normal.
--- NOTE | 2016-06-10 17:40 | CONS ---
[address] [address] CONSULTATION REPORT PATIENT: NICHOLE GRIMALDO : 1930 MR#: [id number] ADMIT: 06/09/2016 JOB ID: [id number] DATE OF SERVICE: 06/09/2016 CHIEF COMPLAINT/IDENTIFICATION: Dr. Steward has asked me to see this 86-year-old man in the emergency department with possible cholecystitis. HISTORY OF PRESENT ILLNESS: The patient has not has never had an attack like this before but developed right upper quadrant pain after eating dessert after dinner this evening. Pain is localized in the right upper quadrant, associated with one episode of loose stool and nausea, but was unrelieved with any sort of positioning, not exacerbated by activity. He is brought to the emergency department by his . He has no history of jaundice, acholic stools, nor tea-colored urine. He is not aware of having gallstones. Other GI review of systems pretty much negative in terms of chronic abdominal pain, postprandial pain, any known history of peptic ulcer disease or overuse of nonsteroidal anti-inflammatory drugs. 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 MEDICATIONS: See med rec reconciliation. ALLERGIES: No known allergies. SOCIAL HISTORY: . Negative daily alcohol. Negative tobacco though previously he was a heavy drinker and smoker 3-4 decades ago. FAMILY HISTORY: CVA and peripheral vascular disease. REVIEW OF SYSTEMS: Complete review of systems negative per admission history and physical. PHYSICAL EXAMINATION: A pleasant man in no acute distress seen with his in the emergency department. His room air saturation is 97%. He is afebrile with temp 36.9, pulse 79, blood pressure is 125/65. His sclerae are clear. Neck is supple. Lungs are clear. Heart sounds are present. His abdomen has [id number] right upper quadrant tenderness without guarding. Extremities are without edema. LABORATORY DATA: White count is 14.8, hematocrit is 42. Chemistries are normal. Glucose is 118. LFTs are normal. IMAGING: CT scan: I have reviewed the CT scan as well as the report and this demonstrates gallstones and findings consistent with cholecystitis with a dilated thickened gallbladder wall with pericholecystic fluid and inflammation. IMPRESSION AND PLAN: Probable acute cholecystitis. I have recommended admission, placing him on antibiotics, and we will operate on him tomorrow morning. We have discussed plans for laparoscopic cholecystectomy including the risks, benefits, and possible complications with the patient and his , and he would like to proceed tomorrow. He is to be admitted to the Medicine service and we will operate on him tomorrow.
[2016-06-10] MEDS: Heparin 5,000 Unit/mL Inj SUBQ SCH (19:50)
[2016-06-11] VITALS (8 sets, daily range): BP systolic 110–136; BP diastolic 57–77; PULSE 55–76; RESP 16–20; O2SAT 92–97
[2016-06-11] MEDS: Heparin 5,000 Unit/mL Inj SUBQ SCH ×3 (04:14→19:55)
--- NOTE | 2016-06-11 04:56 | NUR ---
Activity Pt up walking in halls with SBA and FWW, tolerating activity well. Pt has only had water and ice so far and is "not yet feeling hungry" but can be advanced as tolerated. Pt reports "soreness" to abdominals but when asked about pain he denies and does not want to take anything for sore feeling. Three lap sites are CDI, DUSTY drain with 40 ml of serosanguineous drainage.
[2016-06-11 06:56] LABS: BASOPHILS % (AUTO) 0.1 % (0-3); EOSINOPHILS % (AUTO) 0.1 % (0-5); MONOCYTES % (AUTO) 9.5 % (4-12); Mean Corpuscular Hemoglobin 32.2 pg (27.0-35.0); NEUTROPHILS % (AUTO) 80.7 % (40-74); Platelet Count 119 bil/L (150-400)
[2016-06-11] MEDS: Piperacillin-Tazo 3.375 Gm Inj 3.375 GM in Dextrose 5% Minibag Plus 50 ML IV SCH ×2 (08:56→19:56)
[2016-06-11] MEDS: Sodium Chloride LOK Flush 10 mL Syringe IVFLUSH SCH ×2 (08:56→17:23)
[2016-06-11] MEDS: Lactated Ringer's 1,000 ML IV SCH (11:10)
--- NOTE | 2016-06-11 15:13 | PCM.PNSURG ---
Subjective Date of Service: June 11, 2016 Date of Service: June 11, 2016 Visit Information: Reason for Visit Acute Colecystitis Lithiasis Surgery/Surgery Date Post-Op Day # 1 Date of Admission: Jun 09, 2016 at 22:21 Hospital Day # Subjective: Seen today pod#1 from [facility]. Reports feeling quite a bit more balanced while ambulating. Denies nausea, vomiting. No bm yet but pos flatus. Minimal need for pain meds. Postop General: No Shortness of Breath Gastrointestinal: Tolerating Oral Feedings, No N/V, Passing Flatus Pain Management: PO, Good Pain Control Postop Activity: Ambulating Independently (some weakness with ambulation noted. ) Objective Objective pleasant elderly male in no apparent distress. Vital Sign- Last 8 Hours Date Time Temp Pulse Resp B/P Pulse Ox O2 Delivery O2 Flow Rate FiO2 06/11/16 12:38 36.8 65 18 126/57 97 Room Air 06/11/16 09:27 73 06/11/16 08:37 71 16 92 Room Air 06/11/16 08:15 36.5 64 18 114/61 96 Room Air Intake and Output- Last 8 Hour 06/11/16 Cumulative From/Thru 07:00 06/09/16 18:45 - 06/11/16 06:46 Intake Total 340 ml 3812 ml Output Total 390 ml 920 ml Balance -50 ml 2892 ml Intake Oral 250 ml 250 ml IV Total 90 ml 3562 ml Output Urine Total 350 ml 800 ml Drainage Total 40 ml 70 ml Estimated Blood Loss 50 ml # Bowel Movements 0 0 General: Alert, Oriented X3, Cooperative, No Acute Distress Lungs: Clear to Auscultation Heart: Exam Unremarkable Abdomen: Soft, Appropriately tender, Non-distended, No masses Extremities: Warm Neuro: Normal Speech Catheters: None Result Diagram: 06/11/16 0630 06/11/16 0630 Lab & Micro Results: T. bili 0.9, AST48, ALT 32, Alk Phos 45 WBC decreased to 10.8 Assessment & Plan Impression Satisfactory postoperative course post operative day #1 from [facility]. Problems: Plan 1. Advance diet 2. Stop abx after tonite's dose zosyn 3. DC IVF 4. Likely d/c tomorrow if stable. Pain Management: Ibuprofen morphine for breakthru. VTE Prophylaxis: Sub-Q Heparin (Unfractionated), SCDs Resuscitation Status: CPR: Attempt Resuscitation Jimbo Pink PA-C June 11, 2016 15:13
--- NOTE | 2016-06-11 16:17 | NUR ---
Social Work-readiness for discharge: Data:EMR reviewed. Pt is on day 2 of hospitalization for acute keven per H&P. Pt is not medically stable anticipate tomorrow. pt resides at home with his . Pt has been up SBA in his room. No anticipated discharge needs. SW will continue to follow if needs arise. Assessment:Pt who is independent at baseline. Plan:Pt to discharge home with when medically stable via POV. No anticipated discharge needs. SW will continue to follow if needs arise. WAYLON Penn
--- NOTE | 2016-06-11 16:26 | NUR ---
Pain/Activity Patient ambulated in halls today. Tolerated fair, with some increased pain. Refusing opiate pain meds. Denies pain except for with exertion.
[2016-06-11] MEDS ORDERED: 0.9% Sodium Chloride 100 ML ONE (19:56)
--- NOTE | 2016-06-11 19:58 | PCM.PNMED ---
Subjective Date of Service June 11, 2016 Subjective Patient has undergone cholecystectomy 06/10. Plan is to continue abx for 24 hrs and then remove the J Whitney drain before discharge. Patient had no fevers overnight. Pain is well controlled. Denies any other concerns. Patient states that he is passing flatus but had has not had a bowel movement moment so far. He is eating well tolerating a normal diet and does not have any fluids on board during his last dose of Zosyn tonight at 8:30 PM. Expected to DC tomorrow Exam Vital Signs Vital Sign - Last Date Time Temp Pulse Resp B/P Pulse Ox O2 Delivery O2 Flow Rate FiO2 06/11/16 00:54 36.9 55 20 112/77 94 Room Air 06/10/16 17:01 2 Intake and Output 06/10/16 06/10/16 06/11/16 Cumulative From/Thru 15:00 23:00 07:00 06/09/16 18:45 - 06/11/16 05:35 Intake Total 1315 ml 550 ml 90 ml 3562 ml Output Total 250 ml 280 ml 530 ml Balance 1065 ml 270 ml 90 ml 3032 ml Intake Oral 0 ml 0 ml 0 ml IV Total 1315 ml 550 ml 90 ml 3562 ml Output Urine Total 250 ml 200 ml 450 ml Drainage Total 30 ml 30 ml Estimated Blood Loss 50 ml 50 ml # Bowel Movements 0 0 Exam General: Alert, Oriented X3, Cooperative, Alopecia, Looks stated age and feels miserable Eyes: PERRLA, Scleral Anicteric Mouth: Mouth Normal, Mucous Membranes dry Neck: Supple, no Thyromegaly, trachea central. Chest & Lungs: Clear to auscultation & percussion, No adventitious breath sounds, no crackles, no wheeze Cardiovascular: Normal S1, Normal S2, No Murmurs/Rubs/Gallops, Regular Rate/ Rhythm, (No JVD, no peripheral edema) Abdomen: Soft, Non-tender, Non-distended, Normoactive bowel tones. Surgical incisions and drain site are noted Musculoskeletal: Unremarkable. Normal range of motion, no swollen or erythematous joints Extremities: No edema, no cyanosis, no clubbing. Skin: No rashes. Warm and dry, no erythematous areas Neurological: Grossly neurologically intact, Normal Speech, Sensation Intact IVs and Medications IV Fluids LR 80 cc/hr Medications Reviewed: Medications were reviewed in detail Lab and Diagnostics Laboratory Tests Test 06/11/16 06:30 White Blood Count 10.8th/mm3 (3.8-10.1) Red Blood Count 3.97mil/mm3 (4.40-5.80) Hemoglobin 12.8g/dL (13.8-17.2) Hematocrit 37.3% (41.0-50.0) Mean Corpuscular Volume 94.0fL (81-100) Mean Corpuscular Hemoglobin 32.2pg (27.0-35.0) Mean Corpuscular Hemoglobin Concent 34.3% (32.0-37.0) Red Cell Distribution Width 12.0% (12.3-15.4) Platelet Count 119bil/L (150-400) Neutrophils (%) (Auto) 80.7% (40-74) Lymphocytes (%) (Auto) 9.2% (14-46) Monocytes (%) (Auto) 9.5% (4-12) Eosinophils (%) (Auto) 0.1% (0-5) Basophils (%) (Auto) 0.1% (0-3) Sodium Level 141mEq/L (134-144) Potassium Level 4.2mEq/L (3.5-5.2) Chloride Level 102mEq/L (97-108) Carbon Dioxide Level 24mmol/L (18-29) Blood Urea Nitrogen 12mg/dL (8-27) Creatinine 0.64mg/dL (0.76-1.27) Estimat Glomerular Filtration Rate 126mL/min (>59) Glucose Level 99mg/dL (60-99) Calcium Level 8.0mg/dL (8.5-10.1) Total Bilirubin 0.9mg/dL (0.0-1.2) Aspartate Amino Transf (AST/SGOT) 48U/L (0-50) Alanine Aminotransferase (ALT/SGPT) 32U/L (0-44) Alkaline Phosphatase 45U/L (25-160) Total Protein 5.5g/dL (6.4-8.4) Albumin 3.3g/dL (3.4-5.0) Microbiology 06/09/16 Blood Culture - Preliminary, Resulted No growth at 2 days; culture examined... Result Diagram: 06/10/16 0600 06/10/16 0600 X-Rays, CTs and MRIs PROCEDURE: CT ABDOMEN AND PELVIS WITH CONTRAST IMPRESSION: 1. Ill-defined thickened gallbladder wall with suspected superimposed pericholecystic fluid. There are ill-defined areas of faint intraluminal hyperdensity, suggestive of stone. Findings are highly suspicious for cholelithiasis or with superimposed cholecystitis. However, secondary to areas of indistinct characterization, ultrasound is recommended for additional evaluation. 2. Diverticulosis. Approved by: Lily Tate M.D. 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 Normal LV size; mild concentric LVH. mild global hypokinesis. EF is 40-45% Moderately dilated RV with moderately reduced RV function. 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 Moderate central MR; estimated PA systolic pressure is 36 mm hg assuming RA pressure of 3 mm Hg. Compared to prior echo 08/10, on personal review no sginificant changes have occurred. Reading Physician:05: 10 PM Assessment & Plan Mr. Meléndez is an 86 y/o man with history of atrial fibrillation status post cardioversion, cardiomyopathy, and osteoarthritis who presented to the hospital for right upper quadrant pain Hospital Day 2 1. Acute cholecystitis, present on admission. Under therapy and ongoing - No Sepsis noted but associated leukocytosis improving - Continue Zosyn IV antibiotics and IV fluids - Continue to monitor vital signs - General surgery consulted and plans to do cholecystectomy: patient is now pod #1 - [employer] risk calculator places patient at an average risk for the procedure for his age - Plan from surgery is to continue antibiotics/(zosyn for 24 hrs and remove the J whitney drain prior to discharge. 2. Lactic acidosis. Present on admission. Resolved -- Due to tissue hypoxia - continue IV fluids and antibiotics: Patient no longer has IV fluids 3 Atrial fibrillation, chronic, stable. Rate and rhythm controlled. Status post cardioversion. - Pt no longer requires anticoagulation - Continue to monitor with telemetry 4 Cardiomyopathy, chronic, stable. - Most recent echocardiogram in 09/2014 showed EF 40-45% - Pt appears euvolemic with no acute heart failure - Continue to monitor I&Os - monitor electrolytes, some non sustained V tach reported by nurses on 430 AM : Consider starting patient in metoprolol PO if there is further concern - Acetaminophen as needed for mild pain/fever/headache - Bowel regimen as needed - Antiemetic as needed Patient admitted under inpatient status with expected length of stay > 2 midnights for severity of present symptoms, complexities of treatment plan and risk for adverse event . Pain Evaluation: Adequate Pain Control VTE Prophylaxis: SCDs VTE Mechanical Devices: Intermittant Pneumatic CD Resuscitation Status: CPR: Attempt Resuscitation Nitza Calix DO June 11, 2016 05:45
[2016-06-12] MEDS: Sodium Chloride LOK Flush 10 mL Syringe IVFLUSH SCH ×2 (00:30→09:28)
--- NOTE | 2016-06-12 02:21 | NUR ---
Activity Pt up to BR with FWW, steady on feet. Pt is still trying to have a BM and is passing gas. Prune juice given. Pt denies pain or nausea. DUSTY drain in place, 3 lap sites are CDI.
[2016-06-12] MEDS: Heparin 5,000 Unit/mL Inj SUBQ SCH ×2 (04:07→13:06)
[2016-06-12 05:12] VITALS: BP 130/65; PULSE 66; RESP 18; O2SAT 94
--- NOTE | 2016-06-12 05:55 | NUR ---
BM Pt finally had a large formed BM this morning.
[2016-06-12 07:09] LABS: Mean Corpuscular Hemoglobin 31.7 pg (27.0-35.0); Mean Corpuscular Volume 93.5 fL (81-100)
[2016-06-12 07:47] VITALS: BP 132/68; PULSE 59; RESP 18; O2SAT 93
[2016-06-12 09:26] VITALS: PULSE 64
--- NOTE | 2016-06-12 10:34 | NUR ---
Mobility/ GI Pt up in room using FWW, although he states he does not feel he needs it. Pt said he has been getting up independently; I asked him to call us for assistance for safety. He stated he has had 3 BMs this a.m.: the first BM was large and formed and the other 2 were loose/diarrhea. Tolerating general diet. Pt denies pain. Care continues
[2016-06-12] MEDS ORDERED: OXYC5TAB72 PO (11:43)
--- NOTE | 2016-06-12 11:46 | PCM.DIMED ---
Discharge Instructions Date of Service June 12, 2016 Dates of Hospitalization Jun 09, 2016 at 22:21 Discharge Diagnosis Discharge Diagnosis Acute Cholecystitis. Cardiomyopathy, Afib Diet Low fat, Low Sodium, Heart Healthy Call your provider Fever or Chills, Shortness of breath, Bleeding, Chest pain, Vomitting, Excessive diarrhea, Weakness (unilateral) Patient Instructions Please avoid lifting > 5 lb prior toyour f/u with the general surgery. Follow-up plan F/U with Gen Surg in one week F/U with PCP in 2 weeks F/U with Dr. Patel in 2 weeks at her cardiology clinic [facility] June 12, 2016 11:46
[2016-06-12] MEDS ORDERED: POLY17PO6 PO (12:03)
--- NOTE | 2016-06-12 13:21 | NUR ---
Social Work-Discharge Data: EMR reviewed. Pt is on day 3 of hospitalization for acute keven per H&P. Pt is medically stable for discharge. Pt resides at home with his . Pt has been up SBA in his room. No discharge needs. Pt to discharge home with to transport via POV. Assessment: Pt who is independent at baseline. Plan:Pt to discharge home with via POV. No discharge needs. WAYLON Chambers
[2016-06-12] MEDS ORDERED: ASPI-973 PO (13:23)
--- NOTE | 2016-06-12 13:52 | PCM.DC.MED ---
Discharge Summary Date of Service June 12, 2016 Dates of Hospitalization Date of Hospital Admission Jun 09, 2016 at 22:21 Date of Discharge: June 12, 2016 Providers: Admitting Physician: Shantel Washburn DO [facility]ending [facility]: Shantel Washburn DO Diagnosis at Time of Discharge Diagnosis at Time of Discharge Acute Cholecystitis. Cardiomyopathy, Afib Procedures XRay, CTs & MRIs PROCEDURE: CT ABDOMEN AND PELVIS WITH CONTRAST IMPRESSION: 1. Ill-defined thickened gallbladder wall with suspected superimposed pericholecystic fluid. There are ill-defined areas of faint intraluminal hyperdensity, suggestive of stone. Findings are highly suspicious for cholelithiasis or with superimposed cholecystitis. However, secondary to areas of indistinct characterization, ultrasound is recommended for additional evaluation. 2. Diverticulosis. Approved by: Lily Tate M.D. 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 Normal LV size; mild concentric LVH. mild global hypokinesis. EF is 40-45% Moderately dilated RV with moderately reduced RV function. 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 Moderate central MR; estimated PA systolic pressure is 36 mm hg assuming RA pressure of 3 mm Hg. Compared to prior echo 08/10, on personal review no sginificant changes have occurred. Reading Physician:05: 10 PM Brief History Mr. Meléndez is an 86 y/o man with history of atrial fibrillation status post cardioversion, cardiomyopathy, and osteoarthritis who presented to the hospital today for right upper quadrant pain that started tonight after dinner. He had ice cream and peanuts after dinner then the pain started. He tried to go to sleep but was unable to sleep secondary to the pain. It did not radiate anywhere. It is now gone and only present when he pushes on his abdomen. He had one episode of non-bloody emesis earlier tonight before coming to the ED. He had 1 episode of loose stools followed by an episode of hard stools without any blood in them. He does not have fever, chills, jaundice, any further nausea or vomiting. In the emergency department, he was given a dose of ondansetron and Zosyn and given a bolus of fluids. CT abdomen and pelvis with contrast showed a thickened gallbladder wall and pericholecystic fluid. General surgery was consulted and agreed to proceed with cholecystectomy tomorrow morning and to continue Zosyn and fluids. Hospital Course Mr. Meléndez is an 86 y/o man with history of atrial fibrillation status post cardioversion, cardiomyopathy, and osteoarthritis who presented to the hospital for right upper quadrant pain Hospital Day 2 1. Acute cholecystitis, present on admission. Under therapy and ongoing - No Sepsis noted but associated leukocytosis improving - Continue Zosyn IV antibiotics and IV fluids - Continue to monitor vital signs - General surgery consulted and plans to do cholecystectomy: patient is now pod #1 - [employer] risk calculator places patient at an average risk for the procedure for his age - DUSTY drain is removed.Prior to discharge by surgery 2. Lactic acidosis. Present on admission. Resolved -- Due to tissue hypoxia - continue IV fluids and antibiotics: Patient no longer has IV fluids 3 Atrial fibrillation, chronic, stable. Rate and rhythm controlled. Status post cardioversion. - Pt no longer requires anticoagulation - Continue to monitor with telemetry -- Contacted patient's dye room helper Dr. So Copeland, she knows the patient. She says the patient underwent an ablation procedure and only on anticoagulation briefly for the procedure and thereafter he did not want to be anticoagulated. She will see the patient is a follow-up once he is discharged. She recommends that we give him some aspirin until then. 4 Cardiomyopathy, chronic, stable. - Most recent echocardiogram in 09/2014 showed EF 40-45% - Pt appears euvolemic with no acute heart failure - Continue to monitor I&Os - monitor electrolytes, some non sustained V tach reported by nurses on 06/10 AM : No other incidents were reported during the stay. - Acetaminophen as needed for mild pain/fever/headache - Bowel regimen as needed - Antiemetic as needed Patient admitted under inpatient status with expected length of stay > 2 midnights for severity of present symptoms, complexities of treatment plan and risk for adverse event . Exam Vital Signs (Last) Date Time Temp Pulse Resp B/P Pulse Ox O2 Delivery O2 Flow Rate FiO2 06/12/16 09:26 64 06/12/16 07:47 36.3 18 132/68 93 Room Air 06/10/16 17:01 2 Exam Gen.: No acute distress sitting up in bed without discomfort HEENT: Normocephalic, atraumatic Heart: 2+ systolic murmur Lungs: Clear to auscultation no wheezes or crackles Abdomen: Right lower quadrant tenderness on palpation. Surgical site appears dry and clean, DUSTY drain is still present Extremities: Negative for edema Psych: Negative for anxiety Neuro: No focal deficits Neck: Negative for JVD, negative for thyromegaly, trachea central Test 06/09/16 18:55 06/09/16 19:05 06/10/16 02:15 06/10/16 05:48 Prothrombin Time 10.7sec (8.1-12.5) Prothromb Time International Ratio 1.00ratio Phosphorus Level 3.6mg/dL (2.5-4.9) Magnesium Level 1.9mg/dL (1.6-2.6) Troponin T < 0.010ug/L (0.0-0.011) Lipase 21U/L (13-60) Procalcitonin 0.14ng/mL (0.00-0.08) Urine Color Yellow (YELLOW) Urine Appearance Hazy (CLEAR,HAZY) Urine pH 5.5 (5.0-8.0) Urine Specific [place] 1.025 (1.003-1.035) Urine Protein 30mg/dL (NEG,TRACE) Urine Glucose (UA) Negativemg/dL (NEGATIVE) Urine Ketones 15mg/dL (NEGATIVE) Urine Occult Blood Small (NEGATIVE) Urine Nitrite Negative (NEGATIVE) Urine Bilirubin Negative (NEGATIVE) Urine Urobilinogen Normalmg/dL (NORMAL) Urine Leukocyte Esterase Negative (NEGATIVE) Urine RBC 0-2/hpf (0-2) Urine WBC 0-5/hpf (0-5) Urine Epithelial Cells Few/hpf (NONE-MOD) Urine Crystals None seen (NONE SEEN) Urine Bacteria None/hpf (NONE-FEW) Urine Hyaline Casts None/lpf (NONE) Urine Granular Casts None seen (NONE SEEN) Urine Waxy Casts None seen (NONE SEEN) Urine Red Blood Cell Casts None seen (NONE SEEN) Urine White Blood Cell Casts None seen (NONE SEEN) Urine Mucus Present (None Seen) Urine Trichomonas None seen (NONE SEEN) Urine Yeast None (NONE SEEN) Urinalysis Comment None Urine Culture Reflexed Not indicated Lactic Acid Level 0.8mmol/L (0.4-2.0) Hold Urine Received (Received) Test 06/11/16 06:30 06/12/16 06:50 Neutrophils (%) (Auto) 80.7% (40-74) Lymphocytes (%) (Auto) 9.2% (14-46) Monocytes (%) (Auto) 9.5% (4-12) Eosinophils (%) (Auto) 0.1% (0-5) Basophils (%) (Auto) 0.1% (0-3) White Blood Count 6.1th/mm3 (3.8-10.1) Red Blood Count 3.97mil/mm3 (4.40-5.80) Hemoglobin 12.6g/dL (13.8-17.2) Hematocrit 37.1% (41.0-50.0) Mean Corpuscular Volume 93.5fL (81-100) Mean Corpuscular Hemoglobin 31.7pg (27.0-35.0) Mean Corpuscular Hemoglobin Concent 34.0% (32.0-37.0) Red Cell Distribution Width 11.7% (12.3-15.4) Platelet Count 138bil/L (150-400) Sodium Level 136mEq/L (134-144) Potassium Level 4.2mEq/L (3.5-5.2) Chloride Level 102mEq/L (97-108) Carbon Dioxide Level 24mmol/L (18-29) Blood Urea Nitrogen 11mg/dL (8-27) Creatinine 0.62mg/dL (0.76-1.27) Estimat Glomerular Filtration Rate 130mL/min (>59) Glucose Level 123mg/dL (60-99) Calcium Level 8.3mg/dL (8.5-10.1) Total Bilirubin 0.6mg/dL (0.0-1.2) Aspartate Amino Transf (AST/SGOT) 43U/L (0-50) Alanine Aminotransferase (ALT/SGPT) 29U/L (0-44) Alkaline Phosphatase 42U/L (25-160) Total Protein 5.5g/dL (6.4-8.4) Albumin 3.0g/dL (3.4-5.0) Discharge Medications Discharge Medications Aspirin (Aspirin) 81 Mg Tablet 81 MG PO DAILY Prescribed by: NITZA CHAVES DO Multivitamin (Multi Vitamin Daily) 1 Each Tablet 1 TABLET PO DAILY (Reported) As needed Polyethylene Glycol 3350 (Miralax) 17 Gm Powd.pack 17 GM PO DAILY PRN PRN PRN Prescribed by: NITZA CHAVES DO oxyCODONE (oxyCODONE) 5 Mg Tablet 5 MG PO Q4H PRN PRN For Moderate Pain Prescribed by: NITZA CHAVES DO Followup Plan Follow-up plan F/U with Gen Surg in one week F/U with PCP in 2 weeks Discharge Diet: Low fat, Low Sodium, Heart Healthy Patient Instructions Please avoid lifting > 5 lb prior toyour f/u with the general surgery. Time spent 30 min Nitza Chaves DO June 12, 2016 11:47
--- NOTE | 2016-06-12 14:03 | PATH ---
SURGICAL PATHOLOGY Attending Physician:Sadiq Jarrett MD CASE STATUS: Signed Out PATIENT NAME: NICHOLE GRIMALDO PID: [id number] : 1930 DATE COLLECTED:06/10/2016 00:00 SPECIMEN: Gallbladder CLINICAL HISTORY: ACUTE CHOLECYSTITIS 1). GALLBLADDER FINAL DIAGNOSIS: 1.GALLBLADDER: CHOLELITHIASIS AND ACTIVE CHOLECYSTITIS. NO EVIDENCE OF MALIGNANCY. ICD10 CODE K80.6 K81.0 GROSS DESCRIPTION: The specimen is received in one formalin filled container labeled with the patient's name, sublabeled "gallbladder" and consists of an opened 11.0 x 6.0 x 2.5 CM gallbladder. The serosa is smooth. The cystic duct is not identified. The wall is 0.2-1.3 CM in thickness. The mucosa is a dark green to slaughter in color. The lumen contains 75+ fragments of yellow-slaughter rough calculi which range in size from less than 0.1 CM into 1.5 CM in greatest dimension. 6 site safety representative sections are submitted in 2 cassettes. 06/11/2016 [facility] MICRO DESCRIPTION: See diagnosis. ICD-9 CODES: CPT CODES: 1: 75509 Electronically Signed Out So Yi MD [facility] Pathology [facility] [address], [place] [address] Technical component performed at [facility], [facility] [address], [place], [address]
--- NOTE | 2016-06-12 14:43 | NUR ---
Discharge Pt discharged to home via private vehicle with spouse at 1430 hrs. PIV removed intact. VSS. No c/o pain. All personal possessions sent with pt. Discharge and follow up instructions given to pt, and he expressed understanding.
== END 2016-06-12 14:38 | disposition home or self-care (01) | DRG 418 ==
LOC: SED 18:38 → OSC 22:21
PROVIDERS: ADMIT Internal Medicine; ATTEND Internal Medicine
PROC: BF101ZZ Fluoroscopy of Bile Ducts using Low Osmolar Contrast (ICD-10-PCS; 2016-06-10)
PROC: 0FT44ZZ Resection of Gallbladder, Percutaneous Endoscopic Approach (ICD-10-PCS; principal; 2016-06-10 13:00)
DX: K81.0 Acute cholecystitis (principal); E87.2 Acidosis; I42.9 Cardiomyopathy, unspecified; Z96.641 Presence of right artificial hip joint; Z96.653 Presence of artificial knee joint, bilateral; I48.2 Chronic atrial fibrillation; Z79.01 Long term (current) use of anticoagulants; Z87.891 Personal history of nicotine dependence; Z79.82 Long term (current) use of aspirin

== ENCOUNTER 2016-06-13 06:14 | Emergency (ER) | payer MEDICARE, OTHER ==
[~2016-06-13] VITALS: Ht 177.8 cm; Wt 80.0 kg
[~2016-06-13 06:14] MED LIST changes: -ASPI-13 PO; +ASPI-973 PO; +MULT-1018 PO; +OXYC5TAB72 PO; +POLY17PO6 PO; -WARF5TAB7 PO
[2016-06-13 06:17] VITALS: BP 111/51; PULSE 55; RESP 17; O2SAT 99
--- NOTE | 2016-06-13 07:10 | ED.REPORT ---
HPI-General Illness Date of Service June 13, 2016 ED Provider: Adam Knott MD The patient is a 86 year old male w/ a hx of a-fib, cardiomyopathy, and LE edema who presents to the ED due to concern for blood and drainage from a surgical incision onset this morning. Pt is post-op from a cholecystectomy on Saturday and was discharged on Saturday. He denies fever, nausea and vomiting. Nursing Notes Stated Complaint: DRAINING Chief Complaint: General Complaint Nursing Notes Reviewed: Yes Allergies: Coded Allergies: No Known Allergies (Verified , 06/10/16) Scheduled Aspirin (Aspirin) 81 Mg Tablet 81 MG PO DAILY Multivitamin (Multi Vitamin Daily) 1 Each Tablet 1 TABLET PO DAILY Scheduled PRN Polyethylene Glycol 3350 (Miralax) 17 Gm Powd.pack 17 GM PO DAILY PRN PRN PRN oxyCODONE (oxyCODONE) 5 Mg Tablet 5 MG PO Q4H PRN PRN For Moderate Pain General Time Seen by MD: 07:08 Chief Complaint Other (drainage from surgical incision) Hx Obtained From: Patient Arrived By: Walk-in Sudden in Onset?: Yes Onset Occurred: Just prior to arrival Symptom Duration: Since onset Recent Healthcare: Recent doctor visit, Recent hospitalization, Previous surgery Similar Sx Previous: Yes Past Medical History Past Medical History atrial fibrillation cardiomyopathy cardioversion lower extremity edema hiatal hernia hammertoe Past Surgical History right hip and bilateral knee replacement Reports: Appendectomy, Tonsillectomy Smoking History Former Smoker Social History Other Social History: Good social support, Ambulatory Status Independent Review of Systems draining and bleeding from surgical incision Full Review of Systems Constitutional: Denies: Fever GI: Denies: Nausea, Vomiting Complete sys rev & neg: except as marked. Physical Exam Vital Signs Vital Signs Date Time Temp Pulse Resp B/P Pulse Ox O2 Delivery O2 Flow Rate FiO2 06/13/16 06:17 36.2 55 17 111/51 99 Room Air Initial VS: Reviewed Head / Eyes: Atraumatic, Normocephalic ENT: Mucous membranes moist, Conjunctiva normal Respiratory: Breath sounds normal, Clear to auscultation Cardiovascular: Regular rate & rhythm, Heart sounds normal Extremities: Vascular intact, Neuro intact, No swelling, No tenderness Neurologic: Alert, Oriented General/Constitutional: Awake, Alert, Cooperative, Not toxic appearing Abdomen: Soft well healing 1 cm surigcal incision RUQ no discharge no swelling no fluctuance Re-Eval/Medical Decision Med Decision/Clinical Course 86-year-old male who is now several days status post lap cholecystectomy presenting concerned for drainage from surgical site. On exam he has mild serosanguineous drainage from one of his incision sites. There is no evidence of infection. Did send for culture. Patient is stable for discharge home with return precautions and follow-up with surgeon and primary doctor this week. Time of Eval: 07:31 Re-Evaluation/Progress Note: Pt rechecked. Surgical site is unremarkable and drainage is normal. Informed pt of plan for discharge. F/U and RTER warnings given. Pt understands and agrees with plan. Counseled Regarding: Diagnosis, Lab results, Need for follow-up, When/why to return to ED Discharge & Departure Primary Impression: Post-operative complication Surgical complication system/body Area: [id number] Encounter type: initial encounter Postoperative shock type: other Disposition: Home Discharge Condition All VS Reviewed: Yes Condition: Stable Additional Instructions: The drainage from your incision is completely normal. Keep your follow up appointment with your surgeon to have the site rechecked. Return to the Emergency Department for any new or worsening symptoms or any signs of infection including redness, swelling, pus, fever, or pain. [facility] Scribe Attestation Portion of this note were transcribed by Sonia Chang. I, Dr. Knott, personally performed the history, physical exam, and medical decision-making: I reviewed and confirmed the accuracy for the information in the transcribed note. Signed by: nikolas Mcneal, 06/13/16 0900 copies to: [facility] Adam Knott MD June 13, 2016 07:10 Sonia Chang June 13, 2016 07:15
== END 2016-06-13 07:51 | disposition home or self-care (01) ==
LOC: SED 06:14
DX: K91.89 Other postprocedural complications and disorders of digestive system (principal); Z90.49 Acquired absence of other specified parts of digestive tract; Z87.891 Personal history of nicotine dependence; Z79.82 Long term (current) use of aspirin